=== PATIENT | female | born 1955 | race Caucasian/White ===

== ENCOUNTER 2018-10-20 12:28 | Outpatient (CLI) | payer MEDICARE ==
--- NOTE | 2018-10-20 14:01 | RAD ---
THORACIC SPINE RADIOGRAPHS THREE VIEWS: 10/20/2018 PROVIDED CLINICAL HISTORY: Thoracic spine pain. FINDINGS: Thoracic alignment appears normal. There is partially visualized right convexity scoliosis of the kamini mbar spine. Foreign body heights appear preserved. Multilevel thoracic disk degenerative changes ar e seen. Pedicles appear intact. IMPRESSION: Multilevel thoracic disk degenerative change. POS: [facility]
== END 2018-10-20 12:29 | disposition home or self-care (01) ==
LOC: BICRAD 12:28
PROVIDERS: ATTEND Internal Medicine Rheumatology
DX: M54.6 Pain in thoracic spine (principal); M81.0 Age-related osteoporosis without current pathological fracture; M47.814 Spondylosis without myelopathy or radiculopathy, thoracic region
CPT/HCPCS: 72072

== ENCOUNTER 2018-10-20 13:18 | Outpatient (CLI) | payer MEDICARE ==
--- NOTE | 2018-10-20 14:20 | RAD ---
PA AND LATERAL CHEST XRAY: DATE: 10/20/2018. HISTORY: Cough. COMPARISON: 04/30/2016. FINDINGS: The cardiac silhouette and pulmonary vasculature are within normal limits. Lungs remain clear. Ther e has been no interval change from prior study. IMPRESSION: No acute cardiopulmonary process. POS: [facility]
== END 2018-10-20 13:19 | disposition home or self-care (01) ==
LOC: BICRAD 13:18
PROVIDERS: ATTEND Family Medicine
DX: R05 Cough (principal)
CPT/HCPCS: 71046

== ENCOUNTER 2018-11-24 10:06 | Outpatient (CLI) | payer MEDICARE ==
--- NOTE | 2018-11-24 10:51 | RAD ---
LUMBAR SPINE 2 VIEWS: Date: 11/24/18 HISTORY: Spondylosis without myelopathy or radiculopathy. Pain for a long time. COMPARISON: 12/04/16 MRI. FINDINGS: Moderate dextroscoliosis. Generalized disc osteophytosis and significant facet arthrosis. Approximate ly 0.8 cm Grade I spondylolisthesis of L4 on L5 and 0.8 cm Grade anterolisthesis of L5 on S1. No evid ence for acute fracture or dislocation. IMPRESSION: Dextroscoliosis. Generalized spondylosis. Anterolisthesis of L4 on L5 and L5 on S1. POS: [facility]
--- NOTE | 2018-11-24 10:53 | RAD ---
CERVICAL SPINE 5 VIEWS: Date: 11/24/18 HISTORY: Spondylosis without myelopathy or radiculopathy. COMPARISON: 09/05/06. FINDINGS: Disc osteophytosis at C4-C5, C5-C6, and C6-C7. No evidence for abnormal translation between flexion a nd extension. Generalized facet arthrosis and uncovertebral changes. No prevertebral soft tissue swel ling. The tip of the odontoid and portions of C1 are obscured on the AP open-mouth view. Portions of C7 and T1 are obscured on the lateral view. IMPRESSION: Cervical spondylosis with some generalized worsening from prior study. POS: [facility]
== END 2018-11-24 10:07 | disposition home or self-care (01) ==
LOC: BICRAD 10:06
PROVIDERS: ATTEND Internal Medicine Rheumatology
DX: M47.812 Spondylosis without myelopathy or radiculopathy, cervical region (principal); M47.817 Spondylosis without myelopathy or radiculopathy, lumbosacral region; M41.9 Scoliosis, unspecified; M43.16 Spondylolisthesis, lumbar region; M43.17 Spondylolisthesis, lumbosacral region
CPT/HCPCS: 72050; 72100

== ENCOUNTER 2019-02-27 08:36 | Outpatient (CLI) | payer MEDICARE ==
--- NOTE | 2019-02-27 09:34 | MMO ---
Bilateral MAMMO Bilat Screen DDI+BOB. CLINICAL HISTORY: Patient is 63 years old and is seen for screening. The patient has no family history of breast cancer. The patient has no personal history of cancer. The patient has a history of left Excisional Biopsy in - 2 biopsies on left breast 1 year apart both benign. VIEWS: The views performed were: bilateral craniocaudal with tomosynthesis and bilateral mediolateral oblique with tomosynthesis. FILMS COMPARED: The present examination has been compared to prior imaging studies performed at [facility] [place] on 05/07/2014, 04/22/2015, 06/08/2016 and 06/21/2017. MAMMOGRAM FINDINGS: The breasts are heterogeneously dense, which could obscure a lesion on mammography. Right breast: There are no suspicious masses, calcifications or areas of architectural distortion. There are benign appearing calcifications in the right breast. Left breast: There are benign appearing calcifications in the left breast. There are stable post-operative changes. There are no suspicious masses, suspicious calcifications, or new areas of architectural distortion. IMPRESSION: THERE IS NO MAMMOGRAPHIC EVIDENCE OF MALIGNANCY. A ROUTINE FOLLOW-UP MAMMOGRAM IN 1 YEAR IS RECOMMENDED. THE RESULTS OF THIS EXAM WERE SENT TO THE PATIENT. ACR BI-RADS Category 2 - Benign finding MAMMOGRAPHY NOTE: 1. A negative mammogram report should not delay a biopsy if a dominant of clinically suspicious mass is present. 2. Approximately 10% to 15% of breast cancers are not detected by mammography. 3. Adenosis and dense breasts may obscure an underlying neoplasm. Reported by: KIZZY FONTAINE MD Electonically Signed: [id number]
== END 2019-02-27 08:37 | disposition home or self-care (01) ==
LOC: BICMAMMO 08:36
PROVIDERS: ATTEND Internal Medicine
DX: Z12.31 Encounter for screening mammogram for malignant neoplasm of breast (principal)
CPT/HCPCS: 77063; 77067

== ENCOUNTER 2019-06-02 07:42 | Outpatient (CLI) | payer MEDICARE ==
--- NOTE | 2019-06-02 08:45 | ULT ---
ULTRASOUND RETROPERITONEUM COMPLETE: (RENAL) DATE: 06/02/2019 HISTORY: 64-year-old female with stage III chronic kidney disease FINDINGS: Renal parenchymal echogenicity appears to be slightly diffusely increased. This could be due to techn ical reasons, or could represent medical renal disease. There is a dromedary hump at the right renal midpole. Renal cortex is diffusely thin. No hydronephrosis. There is a 1 x 1.5 cm cortical cyst at right renal mid pole. There is a 1 x 1.5 cm cortical cyst at left renal lower pole. Right kidney measures 9.5 x 5 x 4.5 cm. Left kidney measures 10 x 4.5 x 4.5 cm. Urinary bladder volume 55 mL at time of scan. IMPRESSION: 1) no hydronephrosis. 2) renal cortical thinning. 3) small bilateral renal cysts, at least one of in each kidney.
== END 2019-06-02 07:43 | disposition home or self-care (01) ==
LOC: BICULT 07:42
PROVIDERS: ATTEND Internal Medicine Nephrology
DX: N18.3 Chronic kidney disease, stage 3 (moderate) (principal); N28.1 Cyst of kidney, acquired
CPT/HCPCS: 76770

== ENCOUNTER 2020-03-15 07:49 | Outpatient (CLI) | payer MEDICARE ==
--- NOTE | 2020-03-15 09:02 | ULT ---
US Hepatic Doppler: 03/15/2020 12:00 AM CLINICAL HISTORY: Abnormal liver function tests. STUDY: Right upper quadrant ultrasound of liver. TECHNIQUE: Multiplanar grayscale and color Doppler images were obtained in a ultrasound of the right upper quadrant of the abdomen. Spectral analysis of the Doppler waveforms of the hepatic and splenic vessels were performed. COMPARISON: None. FINDINGS: Liver: Size: Normal. Echogenicity: Hyperechoic consistent with hepatic steatosis. Contour: Smooth. Mass: None. Bile ducts: No intrahepatic or extrahepatic biliary dilatation. Common bile duct measures 4 mm. Gallbladder: Normal. Pancreas: Head, body, and tail appear normal. Hepatic veins: Normal waveforms. Normal directional flow. Portable veins: Normal waveforms. Normal directional flow. Hepatic arteries: Normal waveforms. Normal directional flow. Splenic vein: Normal waveforms. Normal directional flow. Splenic artery: Normal waveforms. Normal directional flow. The spleen is normal in echogenicity without focal lesions and measures 11.2cm in length. IMPRESSION: Fatty liver
== END 2020-03-15 07:50 | disposition home or self-care (01) ==
LOC: SCSULT 07:49
PROVIDERS: ATTEND Internal Medicine Gastroenterology
DX: K21.9 Gastro-esophageal reflux disease without esophagitis (principal); R94.5 Abnormal results of liver function studies; R63.5 Abnormal weight gain; R79.89 Other specified abnormal findings of blood chemistry; K76.0 Fatty (change of) liver, not elsewhere classified
CPT/HCPCS: 76705

== ENCOUNTER 2020-06-07 07:51 | Outpatient (CLI) | payer MEDICARE ==
--- NOTE | 2020-06-07 08:41 | MMO ---
Bilateral MAMMO Bilat Screen DDI+BOB. CLINICAL HISTORY: Patient is 65 years old and is seen for screening. The patient has no family history of breast cancer. The patient has no personal history of cancer. The patient has a history of left Excisional Biopsy in 1989 - benign and left Excisional Biopsy in 1991 - benign. VIEWS: The views performed were: bilateral craniocaudal with tomosynthesis and bilateral mediolateral oblique with tomosynthesis. FILMS COMPARED: The present examination has been compared to prior imaging studies performed at [facility] on 04/22/2015, 06/08/2016, 06/21/2017 and 02/27/2019. This study has been interpreted with the assistance of computer-aided detection. MAMMOGRAM FINDINGS: There are post operative changes seen in the left breast. Stable lymph node left breast. Benign calcifications bilateral. There are no suspicious masses, suspicious calcifications, or new areas of architectural distortion. IMPRESSION: THERE IS NO MAMMOGRAPHIC EVIDENCE OF MALIGNANCY. A ROUTINE FOLLOW-UP MAMMOGRAM IN 1 YEAR IS RECOMMENDED. THE RESULTS OF THIS EXAM WERE SENT TO THE PATIENT. ACR BI-RADS Category 2 - Benign finding MAMMOGRAPHY NOTE: 1. A negative mammogram report should not delay a biopsy if a dominant of clinically suspicious mass is present. 2. Approximately 10% to 15% of breast cancers are not detected by mammography. 3. Adenosis and dense breasts may obscure an underlying neoplasm. Reported by: IVONNE TAVAREZ MD Electonically Signed: [id number]
== END 2020-06-07 07:52 | disposition home or self-care (01) ==
LOC: BICMAMMO 07:51
PROVIDERS: ATTEND Family Medicine
DX: Z12.31 Encounter for screening mammogram for malignant neoplasm of breast (principal); Z91.89 Other specified personal risk factors, not elsewhere classified
CPT/HCPCS: 77063; 77067

== ENCOUNTER 2020-06-17 07:58 | Outpatient (CLI) | payer MEDICARE ==
--- NOTE | 2020-06-17 08:28 | BD ---
EXAM: DEXA bone density examination HISTORY: 65-year-old postmenopausal female for screening COMPARISON: None FINDINGS: L1--bone mineral density 1.021 g/sq cm; T score 0.3 L2--bone mineral density 1.081 g/sq cm; T score 0.5 L3--bone mineral density 1.156 g/sq cm; T score 0.7 L4--bone mineral density 1.333 g/sq cm; T score 2.5 Total L1-L4--bone mineral density 1.150 g/sq cm; T score 0.9 Left femoral neck--bone mineral density0.729; T score -1.1 Total proximal left femur--bone mineral density 0.986; T score 0.4 IMPRESSION: Osteopenia. This patient has a 10 year WHO fracture risk of a major osteoporotic fracture of 24% and of a hip fracture of 1.7%.
== END 2020-06-17 07:59 | disposition home or self-care (01) ==
LOC: BICMAMMO 07:58
PROVIDERS: ATTEND Internal Medicine Rheumatology
DX: Z13.820 Encounter for screening for osteoporosis (principal); M47.812 Spondylosis without myelopathy or radiculopathy, cervical region; M85.852 Other specified disorders of bone density and structure, left thigh
CPT/HCPCS: 77080

== ENCOUNTER 2021-12-19 07:59 | Outpatient (CLI) | payer MEDICARE | END 2021-12-19 08:00 | disposition home or self-care (01) | LOC: BICMAMMO 07:59 | PROVIDERS: ATTEND Internal Medicine | DX: Z12.31 Encounter for screening mammogram for malignant neoplasm of breast (principal); Z91.89 Other specified personal risk factors, not elsewhere classified | CPT/HCPCS: 77063; 77067 ==

== ENCOUNTER 2022-08-24 05:43 | Day surgery (SDC) | payer MEDICARE ==
[2022-08-23 12:58] VITALS: BMI 25.9
[2022-08-24] MEDS ORDERED: Fentanyl 250 MCG/5 ML VIAL ONE (06:16)
[2022-08-24] MEDS ORDERED: Dexmedetomidine 200 MCG/2 ML VIAL ONE (06:17)
[2022-08-24] MEDS ORDERED: SUGAMMADEX SODIUM 200 MG/2 ML VIAL ONE (06:17)
[2022-08-24] MEDS ORDERED: Lidocaine 1% MPF 2 ML VIAL ONE (06:44)
[2022-08-24] MEDS ORDERED: cefOXitin 2 GM VIAL ONE (06:44)
[2022-08-24] MEDS ORDERED: Sodium Chloride 0.9% 100 ML ONE (06:44)
[2022-08-24] MEDS ORDERED: Iopamidol 15 ML ONE (06:49)
[2022-08-24] MEDS ORDERED: Bupivacaine/Epinephrine 0.25% 30 ML VIAL ONE (06:49)
[2022-08-24] MEDS ORDERED: Lidocaine 2% 6 ML SYR ONE (07:37)
[2022-08-24] MEDS ORDERED: Esmolol 100 MG/10 ML VIAL ONE (07:45)
[2022-08-24] MEDS ORDERED: Rocuronium Bromide 10 MG/ML (10ML VIAL) ONE (07:45)
[2022-08-24] MEDS ORDERED: Ondansetron PF 4 MG/2 ML Vial ONE (07:45)
[2022-08-24] MEDS ORDERED: Lidocaine 1% PF 5 ML VIAL ONE (07:45)
[2022-08-24] MEDS ORDERED: Glycopyrrolate 0.2 MG/ML 5 ML SYRINGE ONE (07:45)
[2022-08-24] MEDS ORDERED: PHENYLEPHRINE-NS 100 MCG/ML 10 ML SYRINGE ONE (07:45)
[2022-08-24] MEDS ORDERED: NEOSTIGMINE 3 MG/3 ML SYR 3 MG/3 ML SYRINGE ONE (07:45)
[2022-08-24] MEDS ORDERED: PROPOFOL 200 MG/20 ML VIAL ONE (07:45)
[2022-08-24] MEDS ORDERED: Dexamethasone 20 MG/5 ML VIAL ONE (07:45)
[2022-08-24] MEDS ORDERED: Fentanyl 100 MCG/2 ML VIAL ONE (09:16)
[2022-08-24] MEDS ORDERED: HYDROcodone/Acetaminophen 5/325 mg Tablet ONE (10:12)
== END 2022-08-24 11:38 | disposition home or self-care (01) ==
LOC: SDC 05:43
PROVIDERS: ATTEND Surgery
PROC: 0FT44ZZ Resection of Gallbladder, Percutaneous Endoscopic Approach (ICD-10-PCS; principal; 2022-08-24)
PROC: BF101ZZ Fluoroscopy of Bile Ducts using Low Osmolar Contrast (ICD-10-PCS; 2022-08-24)
PROC: 0FB04ZX Excision of Liver, Percutaneous Endoscopic Approach, Diagnostic (ICD-10-PCS; 2022-08-24)
DX: K75.81 Nonalcoholic steatohepatitis (NASH) (principal); K74.01 Hepatic fibrosis, early fibrosis; K80.10 Calculus of gallbladder with chronic cholecystitis without obstruction; K82.8 Other specified diseases of gallbladder; I10 Essential (primary) hypertension; E11.9 Type 2 diabetes mellitus without complications; E03.9 Hypothyroidism, unspecified; Z79.84 Long term (current) use of oral hypoglycemic drugs; Z79.85 Long-term (current) use of injectable non-insulin antidiabetic drugs; Z79.890 Hormone replacement therapy; Z79.899 Other long term (current) drug therapy; Z88.1 Allergy status to other antibiotic agents; Z88.2 Allergy status to sulfonamides
CPT/HCPCS: 47379; 47532; 47563; C1889 ×2; 88304; 88307; 88313; J0694; J1100; J2405; J2704; J3010; J3490; Q9967

== ENCOUNTER 2023-07-08 08:42 | Outpatient (CLI) | payer MEDICARE | END 2023-07-08 08:43 | disposition home or self-care (01) | LOC: BICMAMMO 08:42 | PROVIDERS: ATTEND Internal Medicine | DX: R92.8 Other abnormal and inconclusive findings on diagnostic imaging of breast (principal); R92.1 Mammographic calcification found on diagnostic imaging of breast | CPT/HCPCS: 77065; G0279 ==

== ENCOUNTER 2023-10-03 07:43 | Outpatient (CLI) | payer MEDICARE | END 2023-10-03 07:44 | disposition home or self-care (01) | LOC: SCSMRI 07:43 | PROVIDERS: ATTEND Physician Assistant Medical | DX: D01.7 Carcinoma in situ of other specified digestive organs (principal); K86.2 Cyst of pancreas; N28.1 Cyst of kidney, acquired; D73.89 Other diseases of spleen | CPT/HCPCS: 74183; 82565 ==

== ENCOUNTER → 2024-01-07 | Day surgery (SDC) | payer MEDICARE | LOC: MAMMO 06:45 | PROVIDERS: ATTEND Internal Medicine | PROC: 0HB5XZX Excision of Chest Skin, External Approach, Diagnostic (ICD-10-PCS; principal; 2024-01-07) | DX: C50.812 Malignant neoplasm of overlapping sites of left female breast (principal); N64.1 Fat necrosis of breast; R92.1 Mammographic calcification found on diagnostic imaging of breast | CPT/HCPCS: 19081; 76098; A4648; 88305; 88341; 88342; 88360 ==

== ENCOUNTER 2024-09-07 10:22 | Outpatient (CLI) | payer MEDICARE | END 2024-09-07 10:23 | disposition home or self-care (01) | LOC: BICRAD 10:22 | PROVIDERS: ATTEND Internal Medicine | DX: Z02.89 Encounter for other administrative examinations (principal); W19.XXXA Unspecified fall, initial encounter; S82.65XA Nondisplaced fracture of lateral malleolus of left fibula, initial encounter for closed fracture; M79.89 Other specified soft tissue disorders ==